=== PATIENT | female | born 1930 | race Caucasian/White ===

== ENCOUNTER 2018-03-19 15:33 | Emergency (ER) | payer MEDICARE, OTHER ==
[~2018-03-19] VITALS: Ht 152.4 cm; Wt 61.0 kg
[~2018-03-19 15:33] MED LIST: ATOR10TA87; BECL8.7A3 IH; BP MED; HYDR1TAB PO; ONDA8TAB6 PO
[2018-03-19] MEDS ORDERED: ipratropium/albuterol 3ml nebule NEB ONE (16:35)
[2018-03-19] MEDS ORDERED: methylPREDNISolone sod succ 125mg/2ml vial IV ONE (16:35)
[2018-03-19] MEDS ORDERED: HYDR115S PO (16:47)
[2018-03-19] MEDS ORDERED: AZIT-63 PO (16:47)
[2018-03-19] MEDS ORDERED: METH4TAB81 PO (16:47)
[2018-03-19] MEDS ORDERED: HYDROcodone & chlorphen. 10-8mg/5ml oral susp. PO ONE (16:50)
[2018-03-19 17:20] VITALS: BP 112/53
== END 2018-03-19 18:26 | disposition home or self-care (01) ==
LOC: ER 15:34
DX: J47.1 Bronchiectasis with (acute) exacerbation (principal); Z88.2 Allergy status to sulfonamides; Z79.899 Other long term (current) drug therapy
CPT/HCPCS: 71046; 96374; 99284; J2930

== ENCOUNTER 2018-12-31 09:39 | Emergency (ER) | payer MEDICARE, OTHER ==
[~2018-12-31] VITALS: Ht 152.4 cm; Wt 62.6 kg
[~2018-12-31 09:39] MED LIST changes: +HYDR115S PO; +METH4TAB81 PO
[2018-12-31] MEDS ORDERED: aspirin 81mg tab.chew PO ONE (11:35)
[2018-12-31 11:53] LABS: BASOPHILS # (AUTO) 0.1 X10'3 (0-0.2); EOSINOPHILS # (AUTO) 0.4 X10'3 (0-0.9); EOSINOPHILS % (AUTO) 3.9 % (0-6); HEMATOCRIT 40.1 % (35.0-45.0); HEMOGLOBIN 13.6 g/dl (12.0-16.0); LYMPHOCYTES # (AUTO) 2.2 X10'3 (1.1-4.8); MEAN CORPUSCULAR HEMOGLOBIN 30.9 PG (27.0-31.0); MEAN CORPUSCULAR HGB CONC 33.9 g/dL (33.0-36.5); MEAN CORPUSCULAR VOLUME 91.2 FL (78-98); MEAN PLATELET VOLUME 7.9 FL (7.4-10.4); MONOCYTES # (AUTO) 0.6 X10'3 (0-0.9); MONOCYTES % (AUTO) 6.9 % (2-12); NEUTROPHILS # (AUTO) 5.9 X10'3 (1.8-7.7); NEUTROPHILS % (AUTO) 64.2 % (42-75); PLATELET COUNT 242 X10'3 (140-440); RED CELL DISTRIBUTION WIDTH 15.2 % (11.5-14.5); WHITE BLOOD COUNT 9.3 X10'3 (4.5-11.0)
[2018-12-31 12:09] LABS: ALANINE AMINOTRANSFERASE 43 U/L (12-78); ALBUMIN 3.6 G/DL (3.4-5.0); ALBUMIN/GLOBULIN RATIO 0.8 (1.1-1.5); ALKALINE PHOSPHATASE 109 IU/L (46-116); ANION GAP 7 (8-16); ASPARTATE AMINO TRANSFERASE 35 U/L (10-37); BILIRUBIN,TOTAL 0.3 MG/DL (0.1-1.0); BLOOD UREA NITROGEN 16 MG/DL (7-18); BUN/CREATININE RATIO 19.3 (6.6-38.0); CHLORIDE 104 MMOL/L (99-107); CREATININE 0.83 MG/DL (0.40-0.90); GLUCOSE 116 MG/DL (70-104); POTASSIUM 4.6 MMOL/L (3.5-5.1); SODIUM 139 MMOL/L (135-145); TOTAL CARBON DIOXIDE 27.9 MMOL/L (24-32); TOTAL PROTEIN 7.9 G/DL (6.4-8.2); eGFR 65 ML/MIN
[2018-12-31 12:25] VITALS: BP 145/68
== END 2018-12-31 12:27 | disposition home or self-care (01) ==
LOC: ER 09:39
DX: R20.0 Anesthesia of skin (principal); R20.2 Paresthesia of skin; I10 Essential (primary) hypertension; G89.29 Other chronic pain; Z88.2 Allergy status to sulfonamides; Z79.899 Other long term (current) drug therapy
CPT/HCPCS: 36415; 71045; 80053; 84484; 85025; 93005; 99284

== ENCOUNTER 2019-12-01 13:57 | Emergency (ER) | payer MEDICARE ==
[~2019-12-01] VITALS: Ht 154.9 cm; Wt 61.0 kg
[2019-12-01 14:20] LABS: BASOPHILS # (AUTO) 0.1 X10'3 (0-0.2); BASOPHILS % (AUTO) 1.1 % (0-1); EOSINOPHILS # (AUTO) 0.2 X10'3 (0-0.9); EOSINOPHILS % (AUTO) 1.5 % (0-6); HEMATOCRIT 37.4 % (35.0-45.0); HEMOGLOBIN 12.9 g/dl (12.0-16.0); LYMPHOCYTES # (AUTO) 2.5 X10'3 (1.1-4.8); LYMPHOCYTES % (AUTO) 19.5 % (21-51); MEAN CORPUSCULAR HGB CONC 34.6 g/dL (33.0-36.5); MEAN CORPUSCULAR VOLUME 89.8 FL (78-98); MEAN PLATELET VOLUME 7.4 FL (7.4-10.4); MONOCYTES # (AUTO) 0.5 X10'3 (0-0.9); MONOCYTES % (AUTO) 4.3 % (2-12); NEUTROPHILS # (AUTO) 9.3 X10'3 (1.8-7.7); NEUTROPHILS % (AUTO) 73.6 % (42-75); PLATELET COUNT 307 X10'3 (140-440); RED BLOOD COUNT 4.16 X10'6 (4.20-5.60); RED CELL DISTRIBUTION WIDTH 14.7 % (11.5-14.5); WHITE BLOOD COUNT 12.6 X10'3 (4.5-11.0)
[2019-12-01] MEDS ORDERED: normal saline 1000ML IV soln IV ONE (14:30)
[2019-12-01 14:31] LABS: ALANINE AMINOTRANSFERASE 22 U/L (12-78); ALBUMIN 3.7 G/DL (3.4-5.0); ALBUMIN/GLOBULIN RATIO 0.9 (1.1-1.5); ALKALINE PHOSPHATASE 116 IU/L (46-116); ANION GAP 13 (8-16); ASPARTATE AMINO TRANSFERASE 28 U/L (10-37); BILIRUBIN,TOTAL 0.4 MG/DL (0.1-1.0); BLOOD UREA NITROGEN 24 MG/DL (7-18); BUN/CREATININE RATIO 25.5 (6.6-38.0); CALCIUM 9.5 MG/DL (8.5-10.1); CHLORIDE 104 MMOL/L (99-107); CREATININE 0.94 MG/DL (0.40-0.90); GLUCOSE 173 MG/DL (70-104); PARTIAL THROMBOPLASTIN TIME 25 SECONDS (22-32); SODIUM 139 MMOL/L (135-145); TOTAL CARBON DIOXIDE 22.3 MMOL/L (24-32); TOTAL PROTEIN 7.8 G/DL (6.4-8.2); eGFR 56 ML/MIN
[2019-12-01 14:34] LABS: TROPONIN I < 0.04 NG/ML (0.0-0.05)
[2019-12-01] MEDS ORDERED: iohexol 300mg/ml 100ml inj. ONE (15:06)
--- NOTE | 2019-12-01 15:27 | NUR ---
hand streagth about equal now
[2019-12-01] MEDS ORDERED: levetiracetam 250mg tablet PO ONE (17:05)
--- NOTE | 2019-12-01 17:13 | NUR ---
[facility] CALLED NO BED AVALIBLE UNTIL "AFTER SHIFT CHANGE" ETA GIVEN WAS 18:45
--- NOTE | 2019-12-01 18:56 | NUR ---
[facility] CALLED AT 1856 WITH NO ETA AND WILL CALL BACK IN 1 HOUR FOR UPDATE
[2019-12-01 19:47] VITALS: BP 117/61
--- NOTE | 2019-12-01 20:05 | NUR ---
CALLED [facility] AT 2002. MIKY BE AT LVL 30-45 MINS. WILL CALL BACK IF ANYTHING CHANGES
--- NOTE | 2019-12-01 21:16 | NUR ---
CALLED [facility] CANCLED TRANSPORT DUE TO FAMILY GOING POV
--- NOTE | 2019-12-01 22:01 | NUR ---
dr. sosa approved pt to be transported via pov. her daughter came to pick her up. Report was called to JOEL Glez at x [phone]. Pt stable. Denies dizziness or headache at this time. pt drank some coffee and ate some crackers as requested. paperwork sent with pt and daughter. No other issues or request. attempted to reach [facility] to update them.
== END 2019-12-01 22:02 | disposition short-term general hospital (02) ==
LOC: ER 13:58
DX: G93.6 Cerebral edema (principal); L98.8 Other specified disorders of the skin and subcutaneous tissue; G40.209 Localization-related (focal) (partial) symptomatic epilepsy and epileptic syndromes with complex partial seizures, not intractable, without status epilepticus; I10 Essential (primary) hypertension; G89.29 Other chronic pain; R79.1 Abnormal coagulation profile; Z88.2 Allergy status to sulfonamides; Z79.899 Other long term (current) drug therapy
CPT/HCPCS: 36415; 70450; 70460; 71045; 80053; 82948; 84484; 85025; 85610; 85730; 93005; 99285; Q9967